=== PATIENT | female | born 1965 | race Caucasian/White ===

== ENCOUNTER → 2019-08-16 09:31 | Outpatient (CLI) | payer OTHER, SELFPAY ==
--- NOTE | 2019-08-16 | DI.RAD.S_ITS ---
PROCEDURE: XR LUMBAR SPINE 2-3V INDICATIONS: SCIATICA TECHNIQUE: 3 views of the lumbar spine were acquired. COMPARISON: None. FINDINGS: Bones: There are 5 lumbar-type vertebral bodies. The lowest intervertebral disk space is designated as L5-S1. The vertebral body heights are well-maintained without evidence to suggest an acute compression fracture. The bone mineralization is within normal limits. Moderate degenerative changes of the lumbar spine are predominantly seen involving the lower lumbar facet joints. There is prominent this could possibly L5-S1. The remainder of the intervertebral disc heights are relatively well-maintained. Soft tissues: There is aortic atherosclerosis. Otherwise, the soft tissues of the imaged abdomen and pelvis are within normal limits. IMPRESSION: Moderate degenerative changes of the lumbar spine are more prominent involving the lower lumbar levels. Dictated by: Shayne Amaya M.D. on 08/16/2019 at 9:53 Approved by: Shayne Amaya M.D. on 08/16/2019 at 9:54
== END ==
PROVIDERS: PCP Family Medicine; Visit Provider Family Medicine
DX: M47.26 Other spondylosis with radiculopathy, lumbar region (principal); I70.0 Atherosclerosis of aorta
CPT/HCPCS: 72100

== ENCOUNTER 2023-01-31 16:18 | Emergency (ER) | payer OTHER, SELFPAY ==
[2023-01-31 16:22] VITALS: BP 146/75; PULSE 87; RESP 18; TEMP 36.9; O2SAT 99; BMI 32.8
--- NOTE | 2023-01-31 16:29 | DI.RAD.S_ITS ---
PROCEDURE: XR KNEE RT 3V INDICATIONS: felt a pop/unable to bear weight TECHNIQUE: 3 views of the knee were acquired. COMPARISON: None. FINDINGS: Bones: No fractures or dislocations. No suspicious bony lesions. Soft tissues: Small joint effusion. No suspicious soft tissue calcifications. Anterior medial soft tissue swelling. IMPRESSION: 1. No acute osseous abnormalities. 2. Small knee joint effusion. 3. Anterior medial soft tissue swelling could be related to injury of the medial patellar retinaculum. If clinical symptoms persist, advanced imaging such as CT or MRI can be obtained for further evaluation. Dictated by: Magali Ferraro M.D. on 01/31/2023 at 17:10 Approved by: Magali Ferraro M.D. on 01/31/2023 at 17:14
--- NOTE | 2023-01-31 18:23 | ED_ITS ---
HPI - Extremity Injury (Lower) <Galo Guo PA-C - Last Filed: 01/31/23 19:21> General Chief Complaint: Extremity Injury, Lower Stated Complaint: injured left leg Time Seen by Provider: 01/31/23 18:14 Source: patient Mode of arrival: Wheelchair History of Present Illness HPI Narrative: This is a 57-year-old female presents to the emergency department due to right knee pain. Patient states that she initially hurt it 2 weeks ago and was seen by her primary care provider where they ordered right knee x-rays and said it was ?possibly the meniscus?. She states that she slipped on the grass and her lawn today where she re-injured of the right knee and states that she can ?barely move it?. Patient denies any numbness or tingling distally the states that shortly the difficulty moving it with moderate pain to the right knee. No history of any prior knee surgeries. Related Data Home Medications Medication Instructions Recorded Confirmed ASPIRIN (#ASPIRIN E.C.) 325 mg PO Q DAY ##0 04/26/12 LEVOTHYROXINE SODIUM (LEVOTHROID) 0.1 mg PO QDAY ##0 04/26/12 TRAMADOL HCL (RYBIX ODT) 50 mg PO Q6H ##0 04/26/12 albuterol sulfate 90 mcg/actuation 1 puff INH PRN ##8.5 04/26/12 aerosol inhaler (Proventil HFA) amlodipine 5 mg tablet (Norvasc) 5 mg PO QDAY ##0 04/26/12 atorvastatin 20 mg tablet (Lipitor) 20 mg PO HS ##0 04/26/12 gabapentin 600 mg tablet 600 mg PO HS ##0 04/26/12 (Neurontin) metoprolol succinate 50 mg 50 mg PO QDAY ##0 04/26/12 tablet,extended release 24 hr (Toprol XL) Allergies Allergy/AdvReac Type Severity Reaction Status Date / Time MORHPINE AdvReac Unknown NAUSEA Uncoded 01/22/18 12:21 Review of Systems <Galo Guo PA-C - Last Filed: 01/31/23 19:21> Review of Systems Narrative: GENERAL: Denies chills, fatigue, malaise, fever, sweats. HEENT: Denies sinus pain, ear pain, sore throat, difficulty swallowing, dizziness. RESPIRATORY: Denies dyspnea, cough, wheezing, hemoptysis, sputum. CARDIOVASCULAR: Denies chest pain, palpitations, orthopnea, edema, GASTROINTESTINAL: Denies nausea, vomiting, abdominal pain, diarrhea, constipation, melena. : Denies dysuria, frequency, incontinence, hematuria, urinary retention. MUSCULOSKELETAL: Reports right knee pain SKIN: Denies rash, skin lesions, or other NEUROLOGIC: Denies weakness, headache, numbness, change in speech, confusion, seizures, incoordination. PSYCHIATRIC: No concerning psychosocial issues. 12 point review of systems is negative except for those stated above Patient History <Galo Guo PA-C - Last Filed: 01/31/23 19:21> Social History Smoking Status: Never smoker Smoking Status: Never smoker Substance Use Type: does not use Exam <Galo Guo PA-C - Last Filed: 01/31/23 19:21> Narrative Exam Narrative: GENERAL: Well-developed patient, in mild distress. HEAD: Atraumatic. Normocephalic. EYES: Pupils equal round and reactive. Extraocular motions intact. No scleral icterus. No injection or drainage. ENT: Nose without bleeding, purulent drainage. Throat without erythema, tonsillar hypertrophy or exudate. Airway patent. NECK: Trachea midline. Non tender EXTREMITIES: Tenderness to palpation to the anterior and lateral aspects of the right knee. Negative anterior drawer test but significant pain with varus movement. Patient range of motion is limited secondary to pain as well. BACK: Nontender without deformity or crepitance. No flank tenderness. NEURO: AOx3. SKIN: No rash or erythema of visible areas Initial Vital Signs Initial Vital Signs: Vital Signs Temperature 98.5 F 01/31/23 16:22 Pulse Rate 87 01/31/23 16:22 Respiratory Rate 18 01/31/23 16:22 Blood Pressure 146/75 H 01/31/23 16:22 Pulse Oximetry 99 01/31/23 16:22 Oxygen Delivery Method Room Air 01/31/23 16:22 <Lorraine Cheung DO - Last Filed: 01/31/23 20:10> Initial Vital Signs Initial Vital Signs: Vital Signs Temperature 98.5 F 01/31/23 16:22 Pulse Rate 87 01/31/23 16:22 Respiratory Rate 18 01/31/23 16:22 Blood Pressure 146/75 H 01/31/23 16:22 Pulse Oximetry 99 01/31/23 16:22 Oxygen Delivery Method Room Air 01/31/23 16:22 Course <Galo Guo PA-C - Last Filed: 01/31/23 19:21> Orders Ordered: ED Orders 01/31/23 16:29 XR knee RT 3V Stat Vital Signs Vital signs: Vital Signs - 8 hr 01/31/23 16:22 01/31/23 18:54 Temperature 98.5 F Pulse Rate 87 95 H Respiratory Rate 18 18 Blood Pressure 146/75 H 184/85 H Pulse Oximetry 99 97 Oxygen Delivery Method Room Air Room Air <Lorraine Cheung DO - Last Filed: 01/31/23 20:10> Orders Ordered: ED Orders 01/31/23 16:29 XR knee RT 3V Stat Vital Signs Vital signs: Vital Signs - 8 hr 01/31/23 16:22 01/31/23 18:54 Temperature 98.5 F Pulse Rate 87 95 H Respiratory Rate 18 18 Blood Pressure 146/75 H 184/85 H Pulse Oximetry 99 97 Oxygen Delivery Method Room Air Room Air MDM - Extremity Injury (Lower) <Galo Guo PA-C - Last Filed: 01/31/23 19:21> Imaging Data Extremity x-ray #1: Radiologist's Impression: [place] [address] XRay Report Signed Patient: Vani Muir MR#: [id number] : 1965 Acct:[id number] Age/Sex: 57 / F Date of Service: 01/31/23 Loc: ED Accession Number: [id number] ?? Procedure: XR knee RT 3V Ordering Provider: Lorraine Cheung D.O. PROCEDURE:? XR KNEE RT 3V ? INDICATIONS:? felt a pop/unable to bear weight ? TECHNIQUE:? 3 views of the knee were acquired.? ? COMPARISON:? None. ? FINDINGS:? ? Bones:? No fractures or dislocations.? No suspicious bony lesions.? ? Soft tissues:? Small joint effusion.? No suspicious soft tissue calcifications.? Anterior medial soft tissue swelling. ? ? IMPRESSION:? ? 1. No acute osseous abnormalities. 2. Small knee joint effusion. 3. Anterior medial soft tissue swelling could be related to injury of the medial patellar retinaculum.? If clinical symptoms persist, advanced imaging such as CT or MRI can be obtained for further evaluation.? ? ? Dictated by: Magali Ferraro M.D. on 01/31/2023 at 17:10 ? ? Approved by: Magali Ferraro M.D. on 01/31/2023 at 17:14 ? MDM Narrative Medical decision making narrative: MDM * differential diagnosis includes but not limited to patellar fracture, tibi a/fibula fracture, soft tissue injury, ligament injury, meniscal injury * Prior records reviewed: Patient has not been here for similar complaints in the past * My lab interpretation: None obtained * My imgaing interpretation: Right knee x-ray negative for acute fractures * Clinical Decision Rules/Scores evaluated: None * Independent discussions with: None ED Course: This is a 57-year-old female presenting to the emergency department due to acute right knee pain. No evidence of acute fractures but patient may have possible meniscal or ligament injury. Patient was placed in knee immobil izer, given crutches, and recommended follow up with primary care provider for possible more advanced imaging. Shared Decision Making: Discussed plan patient who is comfortable with the plan. Social Considerations: None Disposition: Discharged to home Discharge Plan Departure Patient Disposition: Home Clinical Impression: Injury of knee Instructions: DI for Knee Sprain Activity Restrictions/Additional Instructions: Thank you for coming to the [facility] Emergency Department today. As we discussed your right knee x-ray showed no evidence of acute fractures but you may have a ligament or meniscal injury. Please keep your knee in the knee immobilizer and use the crutches to not bear weight on it until you are able to follow up with the primary care provider as they will be able to order the more advanced imaging used to evaluate for any kind of ligament injury. Please use Tylenol as needed for pain. Ice and elevation will also help the pain. I hope you feel better soon. Prescriptions: No Action metoprolol succinate [Toprol XL] 50 MG tablet extended release 24 hr 50 mg PO QDAY Qty: 0 ASPIRIN (#ASPIRIN E.C.) 325 mg PO Q DAY Qty: 0 atorvastatin [Lipitor] 20 MG tablet 20 mg PO HS Qty: 0 amlodipine [Norvasc] 5 MG tablet 5 mg PO QDAY Qty: 0 gabapentin [Neurontin] 600 MG tablet 600 mg PO HS Qty: 0 LEVOTHYROXINE SODIUM (LEVOTHROID) 0.1 mg PO QDAY Qty: 0 TRAMADOL HCL (RYBIX ODT) 50 mg PO Q6H Qty: 0 albuterol sulfate [Proventil HFA] 90 MCG/PUFF HFA aerosol inhaler 1 puff INH PRN Qty: 8.5 Referrals: Abrahan Darnell MD [Primary Care Provider] - Stand Alone Forms: Patient Portal/API <Lorraine Cheung DO - Last Filed: 01/31/23 20:10> Cosign ED Attending Williamature Attestation: I was immediately available in the department for consultation.
[2023-01-31 18:54] VITALS: BP 184/85; PULSE 95; RESP 18; O2SAT 97
== END 2023-01-31 18:55 | disposition home or self-care (01) ==
PROVIDERS: Emergency Provider Physician Assistant Medical; PCP Family Medicine
DX: S89.91XA Unspecified injury of right lower leg, initial encounter (principal); W01.0XXA Fall on same level from slipping, tripping and stumbling without subsequent striking against object, initial encounter
CPT/HCPCS: 73562; 99283

== ENCOUNTER → 2023-02-05 19:15 | Outpatient (CLI) | payer OTHER, SELFPAY ==
--- NOTE | 2023-02-05 | DI.MRI.S_ITS ---
PROCEDURE: MR KNEE RT WO CON INDICATIONS: rt knee injury, pain TECHNIQUE: Noncontrast sagittal PD fast spin echo and T2 fast spin echo with fat saturation, sagittal 3-D FLASH with fat saturation; coronal T1 spin echo and PD fast spin echo with fat saturation, and axial PD fast spin echo with fat saturation through the knee. COMPARISON: [facility], CR, XR KNEE RT 3V, 01/31/2023, 16:41. FINDINGS: Image quality: Excellent. Menisci: There is linear oblique high T2 signal intensity traversing the middle and peripheral thirds of the medial meniscal body and posterior horn demonstrating inferior articular surface extension, indicating oblique tearing. Lateral meniscus is intact. Cruciate ligaments: The anterior and posterior cruciate ligaments appear intact. Medial structures: The medial collateral ligament appears intact. Visualized portions of the pes anserinus tendons appear normal. No abnormal bursal fluid. Lateral structures: The lateral collateral ligament, long and short heads of the biceps femoris tendon appear intact. The popliteus tendon appears normal. Iliotibial band appears normal. Anterior structures: The quadriceps and patellar tendons appear intact. Patellar alignment is normal. No femoral trochlear dysplasia or ventral trochlear prominence. No edema in the infrapatellar fat pad. Bones and cartilage: No bone marrow contusions or fractures. There is mild tricompartmental periarticular osteophyte formation. Mild articular cartilage loss diffusely overlies the weight-bearing aspects of the medial femoral condyle and medial tibial plateau. Moderate articular cartilage loss overlies the medial and lateral patellar facets with superimposed high-grade articular cartilage loss overlying the patellar apex. Joint space: There is a small knee joint effusion and a trace Wise's cyst. Normal appearing synovial plicae are incidentally noted. IMPRESSION: 1. Tricompartmental osteoarthritis with associated articular cartilage loss. 2. Medial meniscal tear. 3. Small knee joint effusion and trace Wise's cyst. Dictated by: Jennifer Nixon M.D. on 02/06/2023 at 9:22 Approved by: Jennifer Nixon M.D. on 02/06/2023 at 9:24
== END ==
PROVIDERS: PCP Family Medicine; Referring Provider Emergency Medicine; Visit Provider Emergency Medicine
DX: S83.241A Other tear of medial meniscus, current injury, right knee, initial encounter (principal); M17.11 Unilateral primary osteoarthritis, right knee; M25.461 Effusion, right knee; M25.561 Pain in right knee
CPT/HCPCS: 73721

== ENCOUNTER → 2024-01-06 14:47 | Outpatient (CLI) | payer OTHER, SELFPAY ==
--- NOTE | 2024-01-06 14:49 | DI.ECHO.S_ITS ---
[facility]---------+ [facility] +---------+ : : [address] : : : : [id number] : : : : Phone: [phone]+ Echocardiogram Report + + :Name: MICHAEL ROBERSON Study Date: 01/06/2024 Height: 67 in : :[facility] ReadingLocation: Weight: 210 lb : : Gender: Female BSA: 2.1 m2 : :: 1965 Age: 58 yrs BP: 143/89 mmHg: :Reason For Study: SUBAORTIC STENOSIS : :Ordering Physician: JACRLOS, : :LEONID Performed By: Bridger Valadez : :Referring: LEONID ANGUIANO : + + Interpretation Summary 1) Normal left ventricular thickness, size, wall motion, and systolic function (EF 60-65%). 2) Grossly, normal right ventricular size and function. 3) Sub aortic membrane is seen in LV outflow tract with moderate obstructive gradient. 4) Peak resting left ventricular outflow gradient 43 mmHg, mean 22 mmHg, Velocity 3.3 m/s. 5) No valvular stenosis or regurgitation present. 6) No prior Echo available for comparison. Procedure: A two-dimensional transthoracic echocardiogram with color flow and Doppler was performed. The study quality was technically difficult. There is no prior echocardiogram noted for this patient. The heart rate ranged between 73-85 bpm during the study. The patient was in normal sinus rhythm during the exam. Left Ventricle: The left ventricle is normal in size. Left ventricular wall thickness is normal. Proximal septal thickening is noted. The ejection fraction is estimated to be 60-65%. Left ventricular systolic function appears normal without focal wall motion abnormalities. Right Ventricle: The right ventricle is not well visualized. The right ventricle is grossly normal size. The right ventricular systolic function is normal. Atria: The left atrium is moderately dilated. Right atrial size is normal. The interatrial septum grossly appears intact with no obvious evidence for an atrial septal defect. Mitral Valve: The mitral valve is grossly normal. The mitral valve is not well visualized. There is no mitral valve stenosis. There is no mitral regurgitation noted. Aortic Valve: The aortic valve is not well visualized. Sub aortic membrane is seen in LV outflow tract with moderate obstructive gradient. Peak resting left ventricular outflow gradient 43 mmHg, mean 22 mmHg, Velocity 3.3 m/s. No aortic regurgitation is present. Tricuspid Valve: The tricuspid valve is not well visualized, but is grossly normal. The tricuspid valve is not well visualized. There is no tricuspid stenosis. No tricuspid regurgitation. Pulmonic Valve: The pulmonic valve is not well visualized. There is no pulmonic valvular stenosis. There is no pulmonic valvular regurgitation. Great Vessels: The aortic root is normal size. The dimensions of the ascending aorta are normal. The IVC is of normal diameter and collapses greater than 50% with a sniff. This suggests a low right atrial pressure of 3 mm Hg. Pericardium/ Pleura There is no pericardial effusion. There is no pleural effusion. MMode/2D Measurements & Calculations LVIDd: 4.1 cm LVOT diam: 2.0 cm LVIDs: 2.7 cm Ao root diam: 2.9 cm FS: 34.8 % asc Aorta Diam: 3.3 cm IVSd: 1.2 cm Ao Arch Diam (Prox Trans): 2.8 cm LVPWd: 1.0 cm LV marrero. diameter/BSA (cm/m^2): 2.0 LV sys. diameter/BSA (cm/m^2): 1.3 LA A2 area: 23.5 cm2 RA long axis: 4.7 cm LA A4 area: 21.9 cm2 RA area: 12.9 cm2 LA length (vol): 5.4 cm RA vol: 30.2 ml LA vol: 80.6 ml RA : 14.6 ml/m2 LA vol index: 39.0 ml/m2 IVC diam: 0.89 cm TAPSE: 2.6 cm Doppler Measurements & Calculations Ao V2 max: 326.5 cm/sec LVOT Max Jay: 87.8 cm/sec Ao V2 mean: 211.7 cm/sec LV V1 max P.1 mmHg Ao max P.7 mmHg LV V1 VTI: 17.3 cm Ao mean P.3 mmHg ALXEI(I,D): 0.84 cm2 Ao V2 VTI: 66.1 cm ALEXI(V,D): 0.86 cm2 sev ratio: 0.26 ALEXI indexed to BSA (cm^2/m^2): 0.40 MV E max jay: 76.1 cm/sec PA V2 max: 95.3 cm/sec MV A max jay: 73.2 cm/sec PA V2 mean: 70.3 cm/sec MV E/A: 1.0 PA mean P.2 mmHg Med Peak E' Jay: 5.2 cm/sec PA pr(Accel): 39.6 mmHg E/E' med: 14.5 Lat Peak E' Jay: 4.5 cm/sec E/E' lat: 16.8 E/e' average: 15.6 MV dec time: 0.20 sec SV(OT): 55.2 ml Reading Physician:12:09 PM
== END ==
LOC: ECHO 14:48
PROVIDERS: PCP Emergency Medicine; Referring Provider Internal Medicine Cardiovascular Disease; Visit Provider Internal Medicine Cardiovascular Disease
DX: Q24.4 Congenital subaortic stenosis (principal)
CPT/HCPCS: 93306

== ENCOUNTER → 2024-03-06 15:14 | Outpatient (CLI) | payer OTHER, SELFPAY ==
[2024-03-06 16:40] LABS: Add Manual Diff / Slide Review NO; Basophils Absolute Auto 100 /uL (0-100); Basophils Percent Auto 0.7 % (0-2); Eosinophils Absolute Auto 200 /uL (0-450); Hematocrit 38.4 % (36-46); Hemoglobin 12.8 g/dL (12.0-16.0); Lymphocytes Absolute Auto 2800 /uL (1100-4500); Lymphocytes Percent Auto 33.9 % (25-40); Mean Corpuscular HGB Conc 33.2 % (30-36); Mean Corpuscular Hemoglobin 28.9 PG (26-34); Mean Corpuscular Volume 87.1 fL (80-100); Monocytes Absolute Auto 400 /uL (0-900); Monocytes Percent Auto 5.3 % (3-14); Neutrophils Absolute Auto 4900 /uL (1500-7000); Neutrophils Percent Auto 58.1 % (50-75); Platelet Count 320 X10^3/uL (150-400); Red Blood Cell Count 4.42 X10^6/uL (4.0-5.2); Red Cell Distribution Width 13.5 % (11.6-14.8); White Blood Cell Count 8.4 X10^3/uL (4.5-11.0)
[2024-03-06 16:56] LABS: BUN Creatinine Ratio 19.7 (6-22); Blood Urea Nitrogen 15 mg/dL (7-17); Calcium 9.2 mg/dL (8.4-10.2); Carbon Dioxide 24 mmol/L (22-32); Chloride 103 mmol/L (98-107); Cholesterol 128 mg/dL (140-199); Estimated Glomerular Filt Rate > 60 mL/min (>60); Glucose 95 mg/dL (70-100); HDL Cholesterol 50 mg/dL (40-60); HEMOLYSIS < 15 (0-50); LDL Cholesterol Calculated 47 mg/dL (<100); Sodium 138 mmol/L (137-145); Triglycerides 155 mg/dL (35-150)
== END ==
PROVIDERS: PCP Emergency Medicine; Referring Provider Internal Medicine Cardiovascular Disease; Visit Provider Internal Medicine Cardiovascular Disease
DX: E78.2 Mixed hyperlipidemia (principal)
CPT/HCPCS: 36415; 80048; 80061; 85025

== ENCOUNTER 2025-03-15 23:41 | Emergency (ER) | payer OTHER, SELFPAY ==
--- NOTE | 2025-03-15 23:45 | EKG_ITS ---
[address] [address] Test Date: 2025-03-15 Pat Name: Vani Muir Department: [facility] Room: Gender: Female Pitch Flaker: : 1965 Requested By: Order Number: [id number] Reading MD: Jeremías Ho Measurements Intervals [place] Rate: 87 P: 22 CO: 148 QRS: 15 QRSD: 136 T: 25 QT: 414 QTc: 498 Interpretive Statements Normal sinus rhythm Right bundle branch block T wave abnormality, consider lateral ischemia Electronically Signed On 03-18-2025 17:11:50 PDT by Jeremías Ho
--- NOTE | 2025-03-15 23:45 | DI.RAD.S_ITS ---
PROCEDURE: XR CHEST 1V INDICATIONS: Chest Pain TECHNIQUE: One view of the chest was acquired. COMPARISON: None. FINDINGS AND IMPRESSION: No airspace consolidation or pleural effusion on this single view study. Normal heart size. Degenerative osseous changes. Dictated by: Sergio Tavarez M.D. on 03/16/2025 at 0:00 Approved by: Sergio Tavarez M.D. on 03/16/2025 at 0:01
[2025-03-15 23:51] VITALS: BP 132/61; PULSE 89; RESP 18; TEMP 36.5; O2SAT 97; BMI 28.5
[2025-03-16 00:02] VITALS: PULSE 88; O2SAT 96
[2025-03-16 00:04] VITALS: BP 125/67; PULSE 89; RESP 18; O2SAT 94
--- NOTE | 2025-03-16 00:18 | PC.NURSE ---
pt denies any problems at this time states I was having Afib but I converted in the ambulance denies ever having any c/p or SOB
[2025-03-16 00:26] LABS: Add Manual Diff / Slide Review NO; Basophils Absolute Auto 100 /uL (0-100); Eosinophils Absolute Auto 100 /uL (0-450); Eosinophils Percent Auto 2.4 % (2-4); Hematocrit 36.9 % (36-46); Hemoglobin 12.8 g/dL (12.0-16.0); Lymphocytes Absolute Auto 1800 /uL (1100-4500); Lymphocytes Percent Auto 35.1 % (25-40); Mean Corpuscular HGB Conc 34.7 % (30-36); Mean Corpuscular Hemoglobin 30.2 PG (26-34); Mean Corpuscular Volume 87.1 fL (80-100); Monocytes Absolute Auto 300 /uL (0-900); Monocytes Percent Auto 5.2 % (3-14); Neutrophils Absolute Auto 2900 /uL (1500-7000); Neutrophils Percent Auto 55.3 % (50-75); Platelet Count 279 X10^3/uL (150-400); Red Blood Cell Count 4.24 X10^6/uL (4.0-5.2); Red Cell Distribution Width 13.7 % (11.6-14.8); White Blood Cell Count 5.3 X10^3/uL (4.5-11.0)
[2025-03-16 00:30] VITALS: BP 106/58; PULSE 81; RESP 15; O2SAT 96
[2025-03-16 00:32] LABS: INR 1.1 (0.9-1.3); Prothrombin Time 12.9 SECONDS (9.4-12.5)
[2025-03-16 00:34] LABS: PTT Partial Thromboplastin Tim 36 SECONDS (25.1-36.5)
[2025-03-16 00:35] LABS: Alanine Aminotransferase 28 IU/L (<35); Albumin 4.2 g/dL (3.5-5.0); Albumin Globulin Ratio 1.8 (1.0-2.8); Alkaline Phosphatase 39 U/L (38-126); Aspartate Aminotransferase 32 IU/L (14-36); BUN Creatinine Ratio 14.9 (6-22); Bilirubin Total 0.5 mg/dL (0.2-1.3); Blood Urea Nitrogen 10 mg/dL (7-17); Calcium 8.8 mg/dL (8.4-10.2); Carbon Dioxide 22 mmol/L (22-32); Chloride 107 mmol/L (98-107); Creatine Kinase 60 U/L (30-135); Estimated Glomerular Filt Rate > 60 mL/min (>60); Globulin 2.3 g/dL (1.7-4.1); Glucose 127 mg/dL (70-99); HEMOLYSIS < 15 (0-50); Lipase 981 U/L (23-300); Magnesium 1.6 mg/dL (1.6-2.3); Potassium 3.4 mmol/L (3.4-5.1); Sodium 140 mmol/L (137-145); Total Protein 6.5 g/dL (6.3-8.2)
[2025-03-16 00:47] LABS: NT-proBNP (BNP-Adult 18+) 53 pg/mL (<125); Troponin I < 0.012 ng/mL (0.01-0.034)
[2025-03-16 01:00] VITALS: BP 108/60; PULSE 80; RESP 23; O2SAT 96
--- NOTE | 2025-03-16 01:09 | DI.CT.S_ITS ---
PROCEDURE: CT ABDOMEN PELVIS W CON INDICATIONS: inc lipase 900s TECHNIQUE: After the administration of intravenous contrast, axial sections acquired from the lung bases to the pubic symphysis. Coronal and sagittal reformats were performed. For radiation dose reduction, the following was used: automated exposure control, adjustment of mA and/or kV according to patient size. COMPARISON: None. FINDINGS: Image quality: Diagnostic Lower chest: Basal atelectasis in the lower lungs. Normal heart size. Liver: Possible hepatic steatosis. Gallbladder and biliary system: Unremarkable, nondilated Pancreas: No ductal dilation. Minimal edematous fat stranding adjacent to the pancreatic tail. No area of necrotic parenchyma identified. Spleen: Nonenlarged Adrenals: No discrete nodules Kidneys: No solid renal mass. No hydronephrosis. Vessels and lymph nodes: The main portal vein is patent. No abdominal aortic aneurysm. No pathologic lymphadenopathy by size criteria. Bowel and peritoneum: No acute small bowel obstruction. There is central mesenteric edematous fat stranding, mild. No drainable abscess or ascites. Colonic diverticula. No focal diverticular inflammation. [id number] overall fecal loading. Body wall: Unremarkable Pelvis: Bladder is unremarkable. Bones: No aggressive appearing osseous abnormality. There are degenerative changes. IMPRESSION: Minimal peripancreatic edema at the pancreatic tail compatible with acute interstitial pancreatitis given reported history. No necrotic parenchyma or ductal dilation is seen. Mild central mesenteric fat stranding also present, probably chronic mesenteric panniculitis. No drainable abscess or fluid collection. Other findings above. Dictated by: Sergio Tavarez M.D. on 03/16/2025 at 1:40 Approved by: Sergio Tavarez M.D. on 03/16/2025 at 1:45
[2025-03-16 01:31] VITALS: PULSE 83; O2SAT 95
--- NOTE | 2025-03-16 01:58 | ED.ARRPALP ---
HPI - Arrhythmia/Palpitations General Chief Complaint: Arrhythmia/Palpitations Stated Complaint: palpitations Time Seen by Provider: 03/15/25 23:46 Source: patient and EMS Mode of arrival: EMS History of Present Illness HPI narrative: 59-year-old female with history of atrial fibrillation diagnosed perhaps 20 years ago, on Eliquis chronic anticoagulation. was sleeping and felt that she had an irregular fast heart rhythm, believes that she went up to 160 beats per minute, called 911, EMS transport without specific treatment, symptoms resolved without specific treatment during transport. No associated chest pain or shortness of breath. Also denies back pain and abdominal pain. No recent nausea or vomiting. She takes Mouanjaro for the last 6 months, no other recent medications. Denies alcohol or other drug use. Related Data Home Medications ?Medication ?Instructions ?Recorded ?Confirmed ASPIRIN (#ASPIRIN E.C.) 325 mg PO Q DAY ##0 04/26/12 LEVOTHYROXINE SODIUM (LEVOTHROID) 0.1 mg PO QDAY ##0 04/26/12 TRAMADOL HCL (RYBIX ODT) 50 mg PO Q6H ##0 04/26/12 albuterol sulfate 90 mcg/actuation 1 puff INH PRN ##8.5 04/26/12 aerosol inhaler (Proventil HFA) amlodipine 5 mg tablet (Norvasc) 5 mg PO QDAY ##0 04/26/12 atorvastatin 20 mg tablet (Lipitor) 20 mg PO HS ##0 04/26/12 gabapentin 600 mg tablet 600 mg PO HS ##0 04/26/12 (Neurontin) metoprolol succinate 50 mg 50 mg PO QDAY ##0 04/26/12 tablet,extended release 24 hr (Toprol XL) Allergies Allergy/AdvReac Type Severity Reaction Status Date / Time MORHPINE AdvReac Unknown NAUSEA Uncoded 01/22/18 12:21 Patient History Social History Smoking Status: Never smoker Smoking Status: Never smoker Exam Narrative Exam Narrative: GENERAL: Well-developed patient, in mild distress. HEAD: Atraumatic. Normocephalic. EYES: Pupils equal round and reactive. Extraocular motions intact. No scleral icterus. No injection or drainage. ENT: Nose without bleeding, purulent drainage. Throat without erythema, tonsillar hypertrophy or exudate. Airway patent. NECK: Trachea midline. Non tender CARDIOVASCULAR: Regular rate and rhythm without murmurs, gallops, or rubs. RESPIRATORY: Clear to auscultation. Breath sounds equal bilaterally. No wheezes, rales, or rhonchi. GASTROINTESTINAL: Abdomen soft, non-tender, nondistended. EXTREMITIES: No edema or joint tenderness. BACK: Nontender without deformity or crepitance. No flank tenderness. NEURO: AOx3. Motor functions grossly nonfocal SKIN: No rash or erythema of visible areas Initial Vital Signs Initial Vital Signs: Vital Signs Temperature 97.7 F 03/15/25 23:51 Pulse Rate 89 03/15/25 23:51 Respiratory Rate 18 03/15/25 23:51 Blood Pressure 132/61 03/15/25 23:51 Pulse Oximetry 97 03/15/25 23:51 Oxygen Delivery Method Room Air 03/15/25 23:51 Course Orders Ordered: Discontinued Medications Aspirin (Aspirin 81 Mg Chew Tab) 324 mg PO NOW ONE Stop: 03/15/25 23:46 Last Admin: 03/16/25 01:54 Dose: Not Given Documented By: GOYO Vital Signs Vital signs: Vital Signs - 8 hr 03/15/25 23:51 03/16/25 00:02 03/16/25 00:04 Temperature 97.7 F Pulse Rate 89 88 89 Respiratory Rate 18 18 Blood Pressure 132/61 Pulse Oximetry 97 96 94 Oxygen Delivery Method Room Air 03/16/25 00:04 03/16/25 00:30 03/16/25 00:30 Temperature Pulse Rate 81 Respiratory Rate 15 Blood Pressure 125/67 106/58 L Pulse Oximetry 96 Oxygen Delivery Method 03/16/25 01:00 03/16/25 01:00 03/16/25 01:31 Temperature Pulse Rate 80 83 Respiratory Rate 23 Blood Pressure 108/60 Pulse Oximetry 96 95 Oxygen Delivery Method 03/16/25 02:00 Temperature Pulse Rate 78 Respiratory Rate 15 Blood Pressure Pulse Oximetry 98 Oxygen Delivery Method MDM - Arrhythmia/Palpitations Lab Data Attestation: I reviewed the patient's lab results. Lab results narrative: White blood cell count 5300, hemoglobin 12.8, platelets adequate. Glucose 127. Normal renal function. Normal electrolytes. Serum CO2 22 normal. Liver functions normal. Elevated lipase 981 noted. 03/16/25 00:15 03/16/25 00:15 Labs: Lab Results 03/16/25 03/16/25 Range/Units 00:15 02:15 WBC 5.3 (4.5-11.0) X10^3/uL RBC 4.24 (4.0-5.2) X10^6/uL Hgb 12.8 (12.0-16.0) g/dL Hct 36.9 (36-46) % MCV 87.1 (80-100) fL MCH 30.2 (26-34) PG MCHC 34.7 (30-36) % RDW 13.7 (11.6-14.8) % Plt Count 279 (150-400) X10^3/uL Neut % (Auto) 55.3 (50-75) % Lymph % (Auto) 35.1 (25-40) % [place] % (Auto) 5.2 (3-14) % Eos % (Auto) 2.4 (2-4) % Baso % (Auto) 2.0 (0-2) % Neut # (Auto) 2900 (0634-0733) /uL Lymph # (Auto) 1800 (3628-5778) /uL [place] # (Auto) 300 (0-900) /uL Eos # (Auto) 100 (0-450) /uL Baso # (Auto) 100 (0-100) /uL PT 12.9 H (9.4-12.5) SECONDS INR 1.1 (0.9-1.3) APTT 36 (25.1-36.5) SECONDS Sodium 140 (137-145) mmol/L Potassium 3.4 (3.4-5.1) mmol/L Chloride 107 (98-107) mmol/L Carbon Dioxide 22 (22-32) mmol/L BUN 10 (7-17) mg/dL Creatinine 0.67 (0.52-1.04) mg/dL Estimated GFR > 60 (>60) mL/min BUN/Creatinine Ratio 14.9 (6-22) Glucose 127 H (70-99) mg/dL Calcium 8.8 (8.4-10.2) mg/dL Magnesium 1.6 (1.6-2.3) mg/dL Total Bilirubin 0.5 (0.2-1.3) mg/dL AST 32 (14-36) IU/L ALT 28 (<35) IU/L Alkaline Phosphatase 39 (38-126) U/L Total Creatine Kinase 60 (30-135) U/L Troponin I < 0.012 < 0.012 (0.01-0.034) ng/mL NT-Pro-B Natriuret Pep 53 (<125) pg/mL Total Protein 6.5 (6.3-8.2) g/dL Albumin 4.2 (3.5-5.0) g/dL Globulin 2.3 (1.7-4.1) g/dL Albumin/Globulin Ratio 1.8 (1.0-2.8) Lipase 981 H (23-300) U/L Imaging Data Chest x-ray: Radiologist's Impresson: [place] [address] XRay Report Signed Patient: Vani Muir MR#: [id number] : 1965 Acct:[id number] Age/Sex: 59 / F Date of Service: 03/15/25 Loc: ED Accession Number: [id number] Procedure: XR chest 1V Ordering Provider: Casa Parks MD PROCEDURE: XR CHEST 1V INDICATIONS: Chest Pain TECHNIQUE: One view of the chest was acquired. COMPARISON: None. FINDINGS AND IMPRESSION: No airspace consolidation or pleural effusion on this single view study. Normal heart size. Degenerative osseous changes. Dictated by: Sergio Tavarez M.D. on 03/16/2025 at 0:00 Approved by: Sergio Tavarez M.D. on 03/16/2025 at 0:01 CT scan - abdomen/pelvis: Radiologist's Impresson: [place] [address] CT Scan Report Signed Patient: Vani Muir MR#: [id number] : 1965 Acct:[id number] Age/Sex: 59 / F Date of Service: 03/16/25 Loc: ED Accession Number: [id number] Procedure: CT abdomen pelvis w con Ordering Provider: Casa Parks MD PROCEDURE: CT ABDOMEN PELVIS W CON INDICATIONS: inc lipase 900s TECHNIQUE: After the administration of intravenous contrast, axial sections acquired from the lung bases to the pubic symphysis. Coronal and sagittal reformats were performed. For radiation dose reduction, the following was used: automated exposure control, adjustment of mA and/or kV according to patient size. COMPARISON: None. FINDINGS: Image quality: Diagnostic Lower chest: Basal atelectasis in the lower lungs. Normal heart size. Liver: Possible hepatic steatosis. Gallbladder and biliary system: Unremarkable, nondilated Pancreas: No ductal dilation. Minimal edematous fat stranding adjacent to the pancreatic tail. No area of necrotic parenchyma identified. Spleen: Nonenlarged Adrenals: No discrete nodules Kidneys: No solid renal mass. No hydronephrosis. Vessels and lymph nodes: The main portal vein is patent. No abdominal aortic aneurysm. No pathologic lymphadenopathy by size criteria. Bowel and peritoneum: No acute small bowel obstruction. There is central mesenteric edematous fat stranding, mild. No drainable abscess or ascites. Colonic diverticula. No focal diverticular inflammation. [id number] overall fecal loading. Body wall: Unremarkable Pelvis: Bladder is unremarkable. Bones: No aggressive appearing osseous abnormality. There are degenerative changes. IMPRESSION: Minimal peripancreatic edema at the pancreatic tail compatible with acute interstitial pancreatitis given reported history. No necrotic parenchyma or ductal dilation is seen. Mild central mesenteric fat stranding also present, probably chronic mesenteric panniculitis. No drainable abscess or fluid collection. Other findings above. Dictated by: Sergio Tavarez M.D. on 03/16/2025 at 1:40 Approved by: Sergio Tavarez M.D. on 03/16/2025 at 1:45 ECG Data Attestation: I personally reviewed and interpreted this ECG as follows: Interpretation: 2349, normal sinus rhythm with rate of 87, right bundle branch block pattern noted. MO 148, QRS 136, QTC 498. [facility] Narrative Medical decision making narrative: 59-year-old female with history of atrial fibrillation, felt that she went back into atrial fibrillation with fast rate at sleep, EMS transport, no specific treatment during transport, resolved symptoms during transport and on arrival. Screening EKG with normal sinus rhythm, right bundle branch block pattern noted. Screening labs pending. Chest x-ray no acute changes, see radiology report. Troponin negative. Electrolytes unremarkable. LFTs normal. White blood cell count normal. Hemoglobin normal. Elevated lipase 981 CT abdomen and pelvis ordered. Keep NPO. CT abdomen and pelvis shows mid pancreatic mild inflammatory change. See radiology report. Patient on exam however does not seem to have any tenderness anterior abdomen, on superficial or deep palpation. Made aware of elevated lipase and possible inflammatory change of the pancreas found on imaging. Unclear etiology. Consider stopped Mounjaro for now, if might be the culprit. Offered admission. She would like to go home and try clear liquids at home and FU with her PCP. Declines pain meds. She will repeat her blood tests in the next couple of days as an outpatient. She is agreeable to staying for repeat troponin. Repeat troponin ordered. Repeat troponin also negative. DC home per patient request as above. Discharge Plan Departure Patient Disposition: Home Clinical Impression: Palpitations, Pancreatitis Instructions: Acute Pancreatitis, DI for Pancreatitis, DI for Atrial Fibrillation Activity Restrictions/Additional Instructions: History of atrial fibrillation, palpitations and fast heart rate sensation, EMS transport, no specific treatment, symptoms seemed to be resolved, normal sinus rhythm on arrival here to the emergency department on EKG and on monitor. Screening labs sent. They were remarkable for elevated serum lipase, which comes from the pancreas usually. Liver functions were normal. CT abdomen and pelvis showed some mild inflammatory changes to the pancreas. You did not seem to have any tenderness on your abdominal examination on superficial or even with deep palpation. Unclear cause of the pancreatitis. Consider stopping Mounjaro for now. We discussed admission, declined for now. EKG and troponin blood testing not suggestive of heart attack at this time. Take clear liquid diet for the next couple of days. Recheck symptoms and your repeat lab tests lipase as an outpatient for now in the next couple of days. Return earlier to this/nearest emergency department for any change worsening symptoms or any concerns prior. Prescriptions: No Action metoprolol succinate [Toprol XL] 50 MG tablet extended release 24 hr 50 mg PO QDAY Qty: 0 ASPIRIN (#ASPIRIN E.C.) 325 mg PO Q DAY Qty: 0 atorvastatin [Lipitor] 20 MG tablet 20 mg PO HS Qty: 0 amlodipine [Norvasc] 5 MG tablet 5 mg PO QDAY Qty: 0 gabapentin [Neurontin] 600 MG tablet 600 mg PO HS Qty: 0 LEVOTHYROXINE SODIUM (LEVOTHROID) 0.1 mg PO QDAY Qty: 0 TRAMADOL HCL (RYBIX ODT) 50 mg PO Q6H Qty: 0 albuterol sulfate [Proventil HFA] 90 MCG/PUFF HFA aerosol inhaler 1 puff INH PRN Qty: 8.5 Referrals: Tomy Lozoya MD [Primary Care Provider] Stand Alone Forms: Patient Portal/API/Survey
[2025-03-16 02:00] VITALS: PULSE 78; RESP 15; O2SAT 98
[2025-03-16 02:48] LABS: Troponin I < 0.012 ng/mL (0.01-0.034)
== END 2025-03-16 07:08 | disposition home or self-care (01) ==
PROVIDERS: Emergency Provider Emergency Medicine; PCP Emergency Medicine
DX: R00.2 Palpitations (principal); I45.10 Unspecified right bundle-branch block; K85.90 Acute pancreatitis without necrosis or infection, unspecified; Z86.79 Personal history of other diseases of the circulatory system; Z79.01 Long term (current) use of anticoagulants
CPT/HCPCS: 71045; 74177; 80053; 82550; 83690; 83735; 83880; 84484; 85025; 85610; 85730; 93005; 99282; 99284; Q9967

== ENCOUNTER → 2025-04-19 15:10 | Outpatient (CLI) | payer OTHER, SELFPAY ==
[2025-04-19 17:12] LABS: Alanine Aminotransferase 22 IU/L (<35); Albumin 4.5 g/dL (3.5-5.0); Albumin Globulin Ratio 1.7 (1.0-2.8); Alkaline Phosphatase 44 U/L (38-126); Amylase 68 U/L (30-110); Blood Urea Nitrogen 15 mg/dL (7-17); Calcium 9.2 mg/dL (8.4-10.2); Carbon Dioxide 22 mmol/L (22-32); Chloride 104 mmol/L (98-107); Estimated Glomerular Filt Rate > 60 mL/min (>60); Globulin 2.6 g/dL (1.7-4.1); Glucose 75 mg/dL (70-99); HEMOLYSIS < 15 (0-50); Lipase 162 U/L (23-300); Potassium 3.9 mmol/L (3.4-5.1); Sodium 137 mmol/L (137-145); Total Protein 7.1 g/dL (6.3-8.2)
== END ==
PROVIDERS: PCP Emergency Medicine; Referring Provider Emergency Medicine; Visit Provider Emergency Medicine
DX: K85.30 Drug induced acute pancreatitis without necrosis or infection (principal)
CPT/HCPCS: 36415; 80053; 82150; 83690